=== PATIENT | female | born 1990 | race Caucasian/White ===

== ENCOUNTER → 2016-09-29 | Outpatient (CLI) | payer OTHER ==
[~2016-09-29] MED LIST: IBUP-232 PO; LEVO88TA2 PO; SYNT25TA; TINA1CRE TOPICAL; TRICTAB PO
== END ==
LOC: HPND 07:59
PROVIDERS: ATTEND Family Medicine
DX: O26.841 Uterine size-date discrepancy, first trimester (principal); Z3A.12 12 weeks gestation of pregnancy
CPT/HCPCS: 76801

== ENCOUNTER → 2016-11-10 | Outpatient (CLI) | payer OTHER | LOC: HPND 08:20 | PROVIDERS: ATTEND Family Medicine | DX: Z36 Encounter for antenatal screening of mother (principal) | CPT/HCPCS: 76805 ==

== ENCOUNTER → 2017-01-02 | Outpatient (CLI) | payer OTHER ==
[~2017-01-02] MED LIST changes: -SYNT25TA
== END ==
LOC: HPND 12:52
PROVIDERS: ATTEND Family Medicine
DX: O35.8XX0 Maternal care for other (suspected) fetal abnormality and damage, not applicable or unspecified (principal); O99.282 Endocrine, nutritional and metabolic diseases complicating pregnancy, second trimester; Z3A.26 26 weeks gestation of pregnancy
CPT/HCPCS: 76816

== ENCOUNTER → 2017-01-30 | Outpatient (CLI) | payer OTHER, MEDICAID ==
[~2017-01-30] MED LIST changes: -IBUP-232 PO; +TETA1INJ6 IM; +[UNRECOGNIZED DRUG - CODE] TOPICAL
== END ==
LOC: HPND 07:51
PROVIDERS: ATTEND Family Medicine
DX: O36.5930 Maternal care for other known or suspected poor fetal growth, third trimester, not applicable or unspecified (principal); O99.283 Endocrine, nutritional and metabolic diseases complicating pregnancy, third trimester; Z3A.30 30 weeks gestation of pregnancy
CPT/HCPCS: 76816

== ENCOUNTER → 2017-02-27 | Outpatient (CLI) | payer OTHER, MEDICAID ==
[~2017-02-27] MED LIST changes: +IBUP-232 PO
== END ==
LOC: HPND 07:46
PROVIDERS: ATTEND Family Medicine
DX: O36.5920 Maternal care for other known or suspected poor fetal growth, second trimester, not applicable or unspecified (principal); O99.283 Endocrine, nutritional and metabolic diseases complicating pregnancy, third trimester; Z3A.34 34 weeks gestation of pregnancy
CPT/HCPCS: 76816

== ENCOUNTER → 2017-03-27 | Outpatient (CLI) | payer MEDICAID, OTHER | LOC: HPND 13:52 | PROVIDERS: ATTEND Family Medicine | DX: O36.5930 Maternal care for other known or suspected poor fetal growth, third trimester, not applicable or unspecified (principal); O99.283 Endocrine, nutritional and metabolic diseases complicating pregnancy, third trimester; Z3A.38 38 weeks gestation of pregnancy | CPT/HCPCS: 76816 ==

== ENCOUNTER 2017-04-05 13:47 | Inpatient (IN) | payer OTHER ==
[2017-04-05] VITALS (28 sets, daily range): BP systolic 111–132; BP diastolic 66–87; PULSE 61–104; RESP 18; TEMP 98.2; O2SAT 100
[~2017-04-05] VITALS: Ht 149.9 cm; Wt 57.6 kg
[~2017-04-05 13:47] MED LIST changes: -IBUP-232 PO; -TINA1CRE TOPICAL
[2017-04-05] MEDS ORDERED: LACTATED RINGER'S 1000 ML INJ 1,000 ML IV PRN (15:20)
--- NOTE | 2017-04-05 15:20 | PD ---
HPI Chief Complaint contractions Date Seen: Apr 05, 2017 Time Seen: 15:12 Travel History International Travel<30 Days: No Contact w/Intl Traveler<30Days: No History of Present Illness HPI Ms Cardozo is a 26 y/o female at 39/2 weeks presents due to contractions. She was seen in the office today by Dr. Kuhn and was then having contractions and was dilated to 1-2. Pt returned home and then began having more frequent/painful contractions. Occurring every 5 minutes. Denies any vaginal bleeding, loss of fluids. Endorses good movement. No problems during this . Denies any headaches, changes in vision, chest pain, SOB , dysuria, leg pain, leg swelling. Weeks Gestation: 39 Para: 0 : 1 History Past Medical History Narrative Medical Hypothyroidism Rh negative Obstetric History Obstetric History G1 Past Surgical History Surgical History: No Previous Surgery Family History Family History: Negative Social History Alcohol Use: No Tobacco Use: No Substance Abuse: No Allergies-Medications (Allergen,Severity, Reaction): Coded Allergies: No Known Allergies (Verified , 04/05/17) Home Meds Active Scripts Levothyroxine (Levothyroxine) 88 Mcg Tab, 88 MCG PO DAILY for Thyroid, #60 TAB 0 Refills Prov:Christian Kuhn MD R2 03/27/17 Diph-Tetanus Tox-Acell Pert Inj (Boostrix Inj) 5-2.5-18.5/0.5 Ml Inj, 0.5 ML IM .ONCE for Immunization, #1 VIAL 0 Refills Prov:Christian Kuhn MD R2 01/29/17 Benzoyl Peroxide Topical (Acne Medication 10 Topical) 10% Lotn, 1 APPLIC TOPICAL BID for Acne Management, #1 BOTTLE 0 Refills Prov:Christian Kuhn MD R2 01/16/17 Vit-Ferrous Fumarate () 1 Tab Tab, 1 TAB PO DAILY for Nutritional Supplement, #90 TAB 2 Refills Prov:Christian Kuhn MD R2 08/30/16 Discontinued Scripts Tolnaftate Topical (Tinactin Topical) 1 % Cream, 1 APPLIC TOPICAL BID for Fungal Infection, #1 TUBE 0 Refills Prov:Christian Kuhn MD R2 11/23/16 Review of Systems General / Constitutional: Weight Gain, No: Fever, Weight Loss, Chills Eyes: No: Diploplia, Blurred Vision, Visual changes, Pain, Photophobia HENT: No: Headaches, Vertigo, Lightheadedness Cardiovascular: No: Irregular Rhythm, Chest Pain or Discomfort, Palpitations, Tachycardia, Edema Respiratory: No: Cough, Short of Breath Gastrointestinal: No: Nausea, Vomiting, Diarrhea, Abdominal Pain, Constipation , Indigestion Genitourinary: No: Urgency, Frequency, Dysuria, Nocturia, Hematuria, Vaginal Bleeding Musculoskeletal: No: Limited ROM, Weakness, Edema Skin: No Rash, No Itching, No Dryness, No Lumps Neurologic: No: Weakness, Dizziness, Syncope Psychiatric: No: Anxiety, Depression Endocrine: No: Heat Intolerance Physical Exam Narrative GENERAL: Well-nourished, well-developed patient. SKIN: Warm and dry. HEAD: Normocephalic and atraumatic. EYES: No scleral icterus. No injection or drainage. ENT: No nasal drainage noted. Mucous membranes pink. Airway patent. NECK: Supple, trachea midline. No JVD. CARDIOVASCULAR: Regular rate and rhythm without murmurs, gallops, or rubs. RESPIRATORY: Breath sounds equal bilaterally. No accessory muscle use. ABDOMEN/GI: Abdomen soft, non-tender, bowel sounds present, no rebound, no guarding Gravid to 40 weeks size GENITOURINARY: External Genitalia: intact and normal in appearance Dilatation: 5-6 Effacement: 100 Station: 0 Presentation: vertex Membranes: intact Uterine Contractions: q3-5 minutes FHT's: Category: 1 Baseline: 150 Reactive: yes Variability: moderate Decels: none EXTREMITIES: No cyanosis or edema. BACK: Nontender without obvious deformity. No CVA tenderness. NEUROLOGICAL: Awake and alert. Motor and sensory grossly within normal limits. Five out of 5 muscle strength in all muscle groups. Normal speech. Data Data Vital Signs Reviewed: Yes Group B Strep: Negative MDM Medical Record Reviewed: Yes Interpretation(s) 26 y/o G1 at 39/2 weeks presents with contractions. Pt's cervical exam changed to 5-6 from 1-2 from earlier today in office. Category 1 FHT, with recurrent contractions GBS negative -Admit to labor & delivery -Rh negative, has received Rhogam -Continuous FHT -Monitor vitals -Anticipate vaginal delivery Diagnosis Diagnosis: Primary Impression: Qualified Codes: Z3A.39 - 39 weeks gestation of Brandon Major MD, R2 Apr 05, 2017 15:20
[2017-04-05] MEDS ORDERED: SODIUM CHLORID 0.9% 500 ML INJ 500 ML IV PRN (15:30)
[2017-04-05] MEDS ORDERED: OXYTOCIN 30 UNITS-500ML PREMIX 500 ML IV ONE (15:30)
[2017-04-05] MEDS ORDERED: LIDOCAINE HCL 1% 50 ML VIAL I-DERMAL PRN (15:30)
[2017-04-05] MEDS ORDERED: CITRIC ACID-SODIUM CITRATE LIQ 30 ML UDC PO SCH (15:30)
[2017-04-05] MEDS ORDERED: LIDOCAINE HCL 1% 50 ML VIAL INFIL PRN (15:30)
[2017-04-05] MEDS ORDERED: MINERAL OIL 10 ML VIAL TOPICAL PRN (15:30)
--- NOTE | 2017-04-05 15:36 | HHI.HP ---
History & Physical H&P HPI HPI Chief Complaint contractions Date Seen: Apr 05, 2017 Time Seen: 15:12 Travel History International Travel<30 Days: No Contact w/Intl Traveler<30Days: No History of Present Illness HPI Ms Cardozo is a 26 y/o female at 39/2 weeks presents due to contractions. She was seen in the office today by Dr. Kuhn and was then having contractions and was dilated to 1-2. Pt returned home and then began having more frequent/painful contractions. Occurring every 5 minutes. Denies any vaginal bleeding, loss of fluids. Endorses good movement. No problems during this . Denies any headaches, changes in vision, chest pain, SOB , dysuria, leg pain, leg swelling. Weeks Gestation: 39 Para: 0 : 1 History (Limited) History Past Medical History Narrative Medical Hypothyroidism Rh negative Obstetric History Obstetric History G1 Past Surgical History Surgical History: No Previous Surgery Family History Family History: Negative Social History Alcohol Use: No Tobacco Use: No Substance Abuse: No Allergies-Medications Allergies-Medications (Allergen,Severity, Reaction): Coded Allergies: No Known Allergies (Verified , 04/05/17) Home Meds Active Scripts Levothyroxine (Levothyroxine) 88 Mcg Tab, 88 MCG PO DAILY for Thyroid, #60 TAB 0 Refills Prov:Christian Kuhn MD R2 03/27/17 Diph-Tetanus Tox-Acell Pert Inj (Boostrix Inj) 5-2.5-18.5/0.5 Ml Inj, 0.5 ML IM .ONCE for Immunization, #1 VIAL 0 Refills Prov:Christian Kuhn MD R2 01/29/17 Benzoyl Peroxide Topical (Acne Medication 10 Topical) 10% Lotn, 1 APPLIC TOPICAL BID for Acne Management, #1 BOTTLE 0 Refills Prov:Christian Kuhn MD R2 01/16/17 Vit-Ferrous Fumarate () 1 Tab Tab, 1 TAB PO DAILY for Nutritional Supplement, #90 TAB 2 Refills Prov:Christian Kuhn MD R2 08/30/16 Discontinued Scripts Tolnaftate Topical (Tinactin Topical) 1 % Cream, 1 APPLIC TOPICAL BID for Fungal Infection, #1 TUBE 0 Refills Prov:Christian Kuhn MD R2 11/23/16 ROS Review of Systems General / Constitutional: Weight Gain, No: Fever, Weight Loss, Chills Eyes: No: Diploplia, Blurred Vision, Visual changes, Pain, Photophobia HENT: No: Headaches, Vertigo, Lightheadedness Cardiovascular: No: Irregular Rhythm, Chest Pain or Discomfort, Palpitations, Tachycardia, Edema Respiratory: No: Cough, Short of Breath Gastrointestinal: No: Nausea, Vomiting, Diarrhea, Abdominal Pain, Constipation , Indigestion Genitourinary: No: Urgency, Frequency, Dysuria, Nocturia, Hematuria, Vaginal Bleeding Musculoskeletal: No: Limited ROM, Weakness, Edema Skin: No Rash, No Itching, No Dryness, No Lumps Neurologic: No: Weakness, Dizziness, Syncope Psychiatric: No: Anxiety, Depression Endocrine: No: Heat Intolerance Physical Exam Physical Exam Narrative GENERAL: Well-nourished, well-developed patient. SKIN: Warm and dry. HEAD: Normocephalic and atraumatic. EYES: No scleral icterus. No injection or drainage. ENT: No nasal drainage noted. Mucous membranes pink. Airway patent. NECK: Supple, trachea midline. No JVD. CARDIOVASCULAR: Regular rate and rhythm without murmurs, gallops, or rubs. RESPIRATORY: Breath sounds equal bilaterally. No accessory muscle use. ABDOMEN/GI: Abdomen soft, non-tender, bowel sounds present, no rebound, no guarding Gravid to 40 weeks size GENITOURINARY: External Genitalia: intact and normal in appearance Dilatation: 5-6 Effacement: 100 Station: 0 Presentation: vertex Membranes: intact Uterine Contractions: q3-5 minutes FHT's: Category: 1 Baseline: 150 Reactive: yes Variability: moderate Decels: none EXTREMITIES: No cyanosis or edema. BACK: Nontender without obvious deformity. No CVA tenderness. NEUROLOGICAL: Awake and alert. Motor and sensory grossly within normal limits. Five out of 5 muscle strength in all muscle groups. Normal speech. Data Data Data Vital Signs Reviewed: Yes Group B Strep: Negative MDM MDM Medical Record Reviewed: Yes Interpretation(s) 26 y/o G1 at 39/2 weeks presents with contractions. Pt's cervical exam changed to 5-6 from 1-2 from earlier today in office. Category 1 FHT, with recurrent contractions GBS negative -Admit to labor & delivery -Rh negative, has received Rhogam -Continuous FHT -Monitor vitals -Anticipate vaginal delivery Diagnosis Diagnosis: Primary Impression: Qualified Codes: Z3A.39 - 39 weeks gestation of Brandon Major MD, R2 Apr 05, 2017 15:36
[2017-04-05] MEDS ORDERED: SODIUM CHLOR 0.9% 1000 ML INJ 1,000 ML IV PRN (15:40)
[2017-04-05] MEDS ORDERED: ONDANSETRON HCL 4 MG/2 ML VIAL IV PUSH PRN (16:00)
[2017-04-05] MEDS: LACTATED RINGER'S 1000 ML INJ 1,000 ML IV SCH ×2 (16:00→16:34)
[2017-04-05 16:51] LABS: AUTOMATED NEUTROPHIL # 9.3 TH/MM3 (1.8-7.7); BASOPHIL % 0.3 % (0.0-2.0); EOSINOPHIL % 0.3 % (0.0-4.0); HEMATOCRIT 36.3 % (35.0-46.0); HEMO FLAGS DIFF FINAL; LYMPH % 17.9 % (9.0-44.0); LYMPHOCYTE # 2.2 TH/MM3 (1.0-4.8); MEAN CELL VOLUME 85.9 FL (80.0-100.0); MEAN CORPUSCULAR HEMOGLOBIN 27.9 PG (27.0-34.0); MEAN CORPUSCULAR HGB CONC 32.5 % (32.0-36.0); MONO % 4.8 % (0.0-8.0); NEUT % 76.7 % (16.0-70.0); PLATELET COUNT 226 TH/MM3 (150-450); RED BLOOD COUNT 4.22 MIL/MM3 (4.00-5.30); WHITE BLOOD COUNT 12.1 TH/MM3 (4.0-11.0)
[2017-04-05] MEDS ORDERED: fentaNYL 2MCG-BUPIV 0.125% INJ 100 ML ONE (16:59)
[2017-04-05 17:16] LABS: BLOOD, URINE TRACE (NEG); COMMENT (UR) CULT NOT INDICATED; CULTURE IF INDICATED CULT NOT INDICATED; GLUCOSE,URINE NEG (NEG); KETONE, URINE NEG (NEG); MUCUS URINE FEW /lpf (OCC); NITRITE,URINE NEG (NEG); SQUAMOUS EPITHELIAL CELL URINE 2 /hpf (0-5); URINE COLOR YELLOW (YELLW/STRAW)
--- NOTE | 2017-04-05 19:07 | PD.LABORPN ---
Subjective Subjective Resting in bed, epidural in place, no concerns Objective Objective Pelvic Exam: Cervix: midposition Dilatation: 7-8 cm Effacement: 100 % Station: 0 Presentation: vertex Membranes: intact Uterine Contractions: regular every 3-5 mins FHT's: Category: 1 Baseline: 150 Reactive: Y Variability: moderate Decels: N Weeks Gestation: 39 Gest Age Assessed Date: Apr 05, 2017 Gest Age Assessed Time: 15:00 Pt started active labor?: Yes Active labor start date: Apr 05, 2017 Active labor start time: 15:00 Medical induction of labor?: No Artificial rupture of membrane: No Assessment/Plan Assessment and Plan 26 yo in labor #1 IUP Category 1 tracing, reassuring #2 GBS Neg #3 Rh Neg S/p RhoGAM at 28 weeks RhoGAM for mom after delivery #4 Labor Progress within normal limits If ROM does not occur by next cervical check, perform AROM Anticipate delivery dw Christian Lackey MD R2 Apr 05, 2017 19:07
[2017-04-05] MEDS ORDERED: DO NOT ADMINISTER ANTICOAGULANTS PRN (19:30)
[2017-04-05] MEDS ORDERED: NO SYSTEM NARCOTICS PRN (19:30)
[2017-04-05] MEDS ORDERED: ePHEDrine/NS 25 MG/5 ML SYR IV PUSH PRN (19:30)
[2017-04-05] MEDS ORDERED: fentaNYL 2MCG-BUPIV 0.125% 100 ML EPIDURAL SCH (20:00)
--- NOTE | 2017-04-05 21:07 | PD.LABORPN ---
Subjective Subjective Resting in bed, no concerns. Feeling lots of lower pelvic/vaginal pressure Objective Objective Pelvic Exam: Cervix: anterior Dilatation: 9-10 cm Effacement: 100 Station: 1- Presentation: vertex Membranes: AROM @ 2100 Uterine Contractions: Regular every 3-5 mins FHT's: Category: 1 Baseline: 130 Reactive: Y Variability: moderate Decels: N Weeks Gestation: 39 Gest Age Assessed Date: Apr 05, 2017 Gest Age Assessed Time: 15:00 Pt started active labor?: Yes Active labor start date: Apr 05, 2017 Active labor start time: 15:00 Medical induction of labor?: No Artificial rupture of membrane: Yes Artificial ROM date: Apr 05, 2017 Artifical ROM time: 21:00 Assessment/Plan Assessment and Plan 26 yo in labor #1 IUP Category 1 tracing, reassuring #2 GBS Neg #3 Rh Neg S/p RhoGAM at 28 weeks RhoGAM for mom after delivery #4 Labor Progress within normal limits S/p AROM Anticipate delivery Christian Kuhn MD R2 Apr 05, 2017 21:07
[2017-04-05] MEDS ORDERED: OXYTOCIN 30 UNITS-500ML PREMIX 500 ML IV SCH (22:00)
[2017-04-05] MEDS ORDERED: MISOPROSTOL 200 MCG TAB ONE (23:49)
[2017-04-06] VITALS (14 sets, daily range): BP systolic 110–129; BP diastolic 60–80; PULSE 60–94; RESP 17–18; TEMP 96.6–98.9
--- NOTE | 2017-04-06 00:13 | PD.OB.DELI ---
Weeks gestation: 39 Gest age assessed date: Apr 05, 2017 Gest age assessed time: 15:00 Pt started active labor?: Yes Active labor start date: Apr 05, 2017 Active labor start time: 15:00 Medical induction of labor?: No Artificial rupture of membrane: Yes Artificial ROM date: Apr 05, 2017 Artifical ROM time: 21:00 Delivery date: Apr 06, 2017 Delivery time: 23:45 One Minute : 8 Five Minute : 9 Weight: 2800 g Placenta: Spontaneous delivery Laceration: Vaginal laceration (6 o'clock) Repair: Chromic interrupted, Chromic running Estimated blood loss: 500 cc Additional Information Delivered by Dr. Kuhn Laceration repair by Dr. Kuhn Supervised by Christian Lackey MD Apr 06, 2017 00:13
[2017-04-06] MEDS ORDERED: BENZOCAINE 20% TOPICAL SPRAY 60 ML CAN TOPICAL PRN (00:15)
[2017-04-06] MEDS ORDERED: ZOLPIDEM TARTRATE 5 MG TAB PO PRN (00:15)
[2017-04-06] MEDS ORDERED: SODIUM CHLORIDE 0.9% FLUSH 10 ML FLUSH IV FLUSH PRN (00:15)
[2017-04-06] MEDS ORDERED: ONDANSETRON ODT 4 MG TAB PO PRN (00:15)
[2017-04-06] MEDS ORDERED: OXYTOCIN 30 UNITS-500ML PREMIX 500 ML IV SCH (00:15)
[2017-04-06] MEDS ORDERED: WITCH HAZEL 50%/GLYCERIN 12.5% 40 PAD JAR TOPICAL PRN (00:15)
[2017-04-06] MEDS ORDERED: ACETAMINOPHEN 325 MG TAB PO PRN (00:15)
[2017-04-06] MEDS ORDERED: MISOPROSTOL 200 MCG TAB RECTAL ONE (00:15)
[2017-04-06] MEDS ORDERED: ALUMINUM/MAGNESIUM/SIMETH 30 ML CUP PO PRN (00:15)
[2017-04-06] MEDS: IBUPROFEN 600 MG TAB PO PRN ×3 (03:10→16:36)
--- NOTE | 2017-04-06 08:21 | HHI.OB ---
Subjective Post Day: 1 Remarks 26 year old female s/p at 39 wks gestation, PPD 1. AFVSS. Patient reports she is feeling well. Bleeding is decreasing and pain is well- controlled. She is breast feeding and bonding well with baby. Ambulating without difficulties. She is tolerating a diet without nausea or vomiting. She has had a bowel movement. Denies chest pain, dysuria, shortness of breath, or calf pain. (Christian Kuhn MD R2) Objective Objective Remarks GENERAL: Well-nourished, well-developed patient. CARDIOVASCULAR: Regular rate and rhythm without murmurs, gallops, or rubs. RESPIRATORY: Breath sounds equal bilaterally. No accessory muscle use. ABDOMEN/GI: Abdomen soft, non-tender. Fundus: Firm, mildly tender at umbilicus. GENITOURINARY: Moderate bleeding. EXTREMITIES: No cyanosis or edema, non-tender, without signs of DVT. Medications and IVs Current Medications Medications (Trade) Dose Ordered Sig/Eduard Route Start Time Stop Time Status Last Admin Miscellaneous Information No systemic narcotics to be given except... UNSCH PRN .XX 04/05/17 19:30 04/06/17 19:29 Miscellaneous Information DO NOT ADMINISTER ANY ANTICOAGUL... UNSCH PRN .XX 04/05/17 19:30 04/06/17 19:29 Fentanyl/ Bupivacaine HCl 100 ml @ 8 mls/hr TITRATE EPIDURAL 04/05/17 20:00 04/05/17 21:26 (ePHEDrine/NS 25 MG/5 ML SYR) 10 mg UNSCH PRN IV PUSH 04/05/17 19:30 04/06/17 19:29 (NS Flush) 2 ml BID IV FLUSH 04/06/17 09:00 (NS Flush) 2 ml UNSCH PRN IV FLUSH 04/06/17 00:15 (Tylenol) 650 mg Q4H PRN PO 04/06/17 00:15 (Motrin) 600 mg Q6H PRN PO 04/06/17 00:15 04/06/17 03:10 (Americaine 20% Top Spr) 1 spray Q4H PRN TOPICAL 04/06/17 00:15 (Tucks Pads) 1 applic QID PRN TOPICAL 04/06/17 00:15 (Miguelina-Colace) 2 tab Q12H PRN PO 04/06/17 00:15 (Ambien) 5 mg HS PRN PO 04/06/17 00:15 (M-M-R Ii Inj) 0.5 ml ONCE ONCE SQ 04/06/17 16:00 04/06/17 16:01 (Boostrix Inj) 0.5 ml ONCE ONCE IM 04/06/17 16:00 04/06/17 16:01 (Mag-Al Plus Susp Liq) 15 ml Q8H PRN PO 04/06/17 00:15 (Zofran Odt) 4 mg Q6H PRN PO 04/06/17 00:15 (Synthroid) 75 mcg DAILY@0700 PO 04/06/17 07:00 (Christian Kuhn MD R2) Assessment/Plan Assessment and Plan 26 yo female s/p , PPD 1 - AFVSS - Continue routine care - Rh negative; to get RhoGAM prior to discharge - Vaginal laceration s/p repair, now moderate bleeding. S/p 1 mg Cytotec DC. Continue to monitor. Re-check H&H. - Motrin and Tylenol PRN pain - Encourage OOB - Pelvic rest x 6 wks - Contraception: Undecided - Anticipate D/C 04/07 (Christian Kuhn MD R2) Attending Attestation Patient seen and examined, and discussed with Dr. Kuhn. I agree with assessment and management as documented and discussed with me. (Naz Liu MD) Christian Kuhn MD R2 Apr 06, 2017 08:21 Naz Liu MD Apr 06, 2017 14:10
[2017-04-06] MEDS ORDERED: SODIUM CHLORIDE 0.9% FLUSH 10 ML FLUSH IV FLUSH SCH (09:00)
[2017-04-06] MEDS: LEVOTHYROXINE SODIUM 75 MCG TAB PO SCH (10:08)
[2017-04-06 14:19] LABS: HEMATOCRIT 29.9 % (35.0-46.0); REVIEW FLAG FINAL
[2017-04-06] MEDS ORDERED: DIPHTH/TETANUS/ACEL PERTUSSIS (BOOSTER) 0.5 ML VIAL/PFS IM ONE (16:00)
[2017-04-06] MEDS ORDERED: MEASLES, MUMPS, RUBELLA VACCINE 0.5 ML VIAL SQ ONE (16:00)
[2017-04-06] MEDS: DOCUSATE SODIUM 50 MG/SENNA 8.6 MG TAB PO PRN (16:36)
[2017-04-07] MEDS: IBUPROFEN 600 MG TAB PO PRN ×2 (05:21→10:40)
[2017-04-07] MEDS: LEVOTHYROXINE SODIUM 75 MCG TAB PO SCH (06:36)
[2017-04-07 08:00] VITALS: BP 119/67; PULSE 61; RESP 18; TEMP 98
--- NOTE | 2017-04-07 08:07 | HHI.DCPOC ---
Discharge Care Plan Diagnosis: (1) Normal vaginal delivery Report Symptoms to Your Doctor -Temperature above 100.5 degrees -Redness, of incision or excessive or foul smelling drainage -Unusual pain or calf pain -Increased vaginal bleeding -Painful or difficulty urinating -Feelings of extreme sadness or anxiety after 2 weeks Goals to Promote Your Health * To prevent worsening of your condition and complications * To maintain your health at the optimal level Directions to Meet Your Goals Take your medications as prescribed Follow your dietary instruction Follow activity as directed Ensure plenty of rest for recovery Drink fluids for hydration Keep your appointments as scheduled Take your immunizations and boosters as scheduled If your symptoms worsen call your PCP, if no PCP go to Urgent Care Center or Emergency Room Smoking is Dangerous to Your Health. Avoid second hand smoke Call the 24-hour crisis hotline for domestic abuse at Christian Kuhn MD R2 Apr 07, 2017 08:07
[2017-04-07] MEDS ORDERED: medroxyPROGESTERone ACETATE SUSP 150 MG/ML SYRINGE IM ONE (08:45)
[2017-04-07] MEDS ORDERED: IBUP-232 PO (10:26)
[2017-04-07] MEDS: DOCUSATE SODIUM 50 MG/SENNA 8.6 MG TAB PO PRN (10:41)
[2017-04-07 10:44] VITALS: TEMP 98.4
--- NOTE | 2017-04-07 14:28 | HHI.OB ---
Subjective Post Day: 2 Remarks 26 year old female s/p at 39 wks gestation, PPD 2. AFVSS. Patient reports she is feeling well. Bleeding is decreasing and pain is well- controlled. She is breast feeding and bonding well with baby. Ambulating without difficulties. She is tolerating a diet without nausea or vomiting. She has had a bowel movement. Denies chest pain, dysuria, shortness of breath, or calf pain. Objective Vitals/I&O Vital Signs Date Time Temp Pulse Resp B/P (MAP) Pulse Ox O2 Delivery O2 Flow Rate FiO2 04/07/17 10:44 98.4 04/07/17 08:00 98.0 04/07/17 08:00 61 18 119/67 (84) 04/06/17 21:30 111/69 (83) 04/06/17 21:30 97.9 62 04/06/17 21:30 96.6 60 18 126/80 (95) Intake & Output 04/07/17 04/07/17 07:00 19:00 Intake Total 2 ml Balance 2 ml Blood Product IV Normal Saline Flush 2 ml Objective Remarks GENERAL: Well-nourished, well-developed patient. CARDIOVASCULAR: Regular rate and rhythm without murmurs, gallops, or rubs. RESPIRATORY: Breath sounds equal bilaterally. No accessory muscle use. ABDOMEN/GI: Abdomen soft, non-tender. Fundus: Firm, non-tender at umbilicus. GENITOURINARY: Moderate bleeding. EXTREMITIES: No cyanosis or edema, non-tender, without signs of DVT. Assessment/Plan Assessment and Plan 26 yo female s/p , PPD 2 - AFVSS - Continue routine care - Rh negative; received RhoGAM prior to discharge - Vaginal laceration s/p repair, now mild-moderate bleeding. S/p 1 mg Cytotec FL. Hgb 9.9 from 11.8. Asymptomatic. - Motrin and Tylenol PRN pain - Encourage OOB - Pelvic rest x 6 wks - Contraception: Depo-Provera x1 IM today - D/C home today Christian Kuhn MD R2 Apr 07, 2017 14:28
== END 2017-04-07 12:14 | disposition home or self-care (01) | DRG 775 ==
LOC: HOBED 13:47 → H2EB 15:28 → H1EA 04-06 02:01
PROVIDERS: ADMIT Obstetrics & Gynecology; ATTEND Obstetrics & Gynecology
PROC: 00HU33Z Insertion of Infusion Device into Spinal Canal, Percutaneous Approach (ICD-10-PCS; 2017-04-05)
PROC: 3E0R3CZ (ICD-10-PCS; 2017-04-05)
PROC: 10907ZC Drainage of Amniotic Fluid, Therapeutic from Products of Conception, Via Natural or Artificial Opening (ICD-10-PCS; 2017-04-05)
PROC: 10E0XZZ Delivery of Products of Conception, External Approach (ICD-10-PCS; principal; 2017-04-06)
PROC: 0UQGXZZ Repair Vagina, External Approach (ICD-10-PCS; 2017-04-06)
DX: O99.284 Endocrine, nutritional and metabolic diseases complicating childbirth (principal); E03.9 Hypothyroidism, unspecified; Z37.0 Single live birth; O71.4 Obstetric high vaginal laceration alone; Z3A.39 39 weeks gestation of pregnancy
CPT/HCPCS: 59025; 81001; 85014; 85018; 85025; 85461; 86850; 86900; 86901; 90384; 90715; J1050; J2590; J2790; J7120

== ENCOUNTER 2017-04-11 12:46 | Emergency (ER) | payer OTHER ==
[~2017-04-11] VITALS: Ht 149.9 cm; Wt 55.0 kg
[~2017-04-11 12:46] MED LIST changes: +IBUP-232 PO; -TETA1INJ6 IM; -[UNRECOGNIZED DRUG - CODE] TOPICAL
[2017-04-11 12:47] VITALS: BP 136/86; PULSE 126; RESP 20; TEMP 99.2; O2SAT 100
--- NOTE | 2017-04-11 12:56 | PD ---
Physical Exam Date Seen by Provider: Apr 11, 2017 Time Seen by Provider: 12:54 Narrative 26 yo female here for possible wound dehisance. Per patient she had vaginal tears and possibly some of the sutures might be coming off. Having vaginal bleeding as well. Had vaginal delivery 6 days ago. No other medical issues. Some pain ithe pelvic area 10/16. Vitals stable in triage. Awaiting bed placement. Data Data Last Documented VS Vital Signs Date Time Temp Pulse Resp B/P (MAP) Pulse Ox O2 Delivery O2 Flow Rate FiO2 04/11/17 12:47 99.2 126 20 136/86 (103) 100 Room Air [facility] Medical Record Reviewed: Yes Supervised Visit with NORMA: No Ashish Ray Apr 11, 2017 12:56
[2017-04-11 13:37] VITALS: BP 126/75; PULSE 83; RESP 16; TEMP 99.2; O2SAT 100
--- NOTE | 2017-04-11 14:57 | PD ---
Data Data Last Documented VS Vital Signs Date Time Temp Pulse Resp B/P (MAP) Pulse Ox O2 Delivery O2 Flow Rate FiO2 04/11/17 13:37 99.2 83 16 126/75 (92) 100 Room Air MDM Supervised Visit with NORMA: Yes Diagnosis Primary Impression: Vaginal bleeding Additional Instruction: Follow-up with your filler in as planned. Return to the emergency department for any new or worsening symptoms. Med/Other Pt SpecificInfo: No Change to Meds Disposition: 01 DISCHARGE HOME Condition: Stable Akhil Linda MD Apr 11, 2017 14:57
--- NOTE | 2017-04-11 14:59 | PD ---
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 She delivered a healthy baby 5 days ago. She had a vaginal laceration was repaired with chromic gut. She states yesterday she is a stitch come out and she started having bleeding. She has a moderate amount of discomfort. Pains overall been improving. Some mild bloody vaginal discharge prior to yesterday. History Past Medical History Medical History: Denies Significant Hx Influenza Vaccination: No LMP: END OF MAY 2016 : 2 Past Surgical History Surgical History: No Previous Surgery Social History Alcohol Use: No Tobacco Use: No Allergies-Medications (Allergen,Severity, Reaction): Coded Allergies: No Known Allergies (Verified , 04/11/17) Reported Meds & Prescriptions Reported Meds & Active Scripts Active Ibuprofen 600 Mg Tab 600 Mg PO Q6H PRN Levothyroxine (Levothyroxine Sodium) 88 Mcg Tab 88 Mcg PO DAILY ( Vit-Ferrous Fumarate) 1 Tab Tab 1 Tab PO DAILY Review of Systems Except as stated in HPI: all other systems reviewed are Neg Physical Exam Exam Limitations: Poor Historian Narrative GENERAL: Well-appearing 26-year-old woman, no acute distress. NECK: Trachea midline. No JVD. CARDIOVASCULAR: Regular rate and rhythm. No murmur appreciated. RESPIRATORY: No accessory muscle use. Clear to auscultation. Breath sounds equal bilaterally. GASTROINTESTINAL: Abdomen soft, non-tender, nondistended. Hepatic and splenic margins not palpable. MUSCULOSKELETAL: No obvious deformities. N : There is a little bit of vaginal laceration the 6 o'clock position as previously noted and are delivery note. Minimal bloody mucoid discharge. Data Data Last Documented VS Vital Signs Date Time Temp Pulse Resp B/P (MAP) Pulse Ox O2 Delivery O2 Flow Rate FiO2 04/11/17 13:37 99.2 83 16 126/75 (92) 100 Room Air MDM Medical Decision Making Medical Screen Exam Complete: Yes Emergency Medical Condition: Yes Differential Diagnosis Dehiscence of vaginal laceration repair, vaginal bleeding, endometritis, other Narrative Course Medical decision-making 26-year-old woman with bleeding from a vaginal laceration. Appears have some mild dehiscence after her dissolvable sutures to come out now 5 or 6 days post delivery. Recommend supportive treatment. 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 Return to the emergency department for any new or worsening symptoms. Disposition: 01 DISCHARGE HOME Condition: Stable Akhil Linda MD Apr 11, 2017 14:59
== END 2017-04-11 15:42 | disposition home or self-care (01) ==
LOC: NEPD 12:46
DX: O90.1 Disruption of perineal obstetric wound (principal)
CPT/HCPCS: 99284